=== PATIENT | female | born 1955 ===

== ENCOUNTER 2020-03-14 21:00 | Inpatient (IN) | payer OTHER ==
--- NOTE | ~2020-03-14 | DS ---
PATIENT:NAYELI HERRERA :55 MEDICAL RECORD: [id number] DISCHARGE SUMMARY ADMISSION DATE: 03/14/20 DISCHARGE DATE: 03/31/20 IDENTIFYING DATA: The patient is 65 years old and she was admitted to the hospital on a voluntary basis. CHIEF COMPLAINT: Insomnia. HISTORY OF PRESENT ILLNESS: The patient is delusional. She believes her has given her lice and there is no evidence of this. She does not have lice. She has been so concerned about it that she has sprayed her body with insecticide and caused a significant burn. She is telling me that she is going to divorce her . She is very angry and delusional. She has a history of mental illness and has not been taking her medications. Furthermore, she has a history of being on the state 911 program. The 911 program is reserved for those who has been accused of or convicted of a very serious crime but found not guilty by reason of insanity. It involves a stay in the forensic wing of the [facility] and sometimes are released to the community with intensive monitoring. The commitment is at least a 5 year commitment and it can be renewed indefinitely depending on the patient's condition. She will not tell me why she was on 911 monitoring. HOSPITAL COURSE: The patient was admitted to the hospital and fully evaluated from both a medical, psychological, and social standpoint. She was treated with both antipsychotic and mood stabilizing medications and showed significant improvement. She lost her delusion regarding the lice and also regarding her . Her prognosis is going to be dependent upon her continuing to take these medications. DISCHARGE DIAGNOSES: AXIS I: Schizoaffective disorder, bipolar type. AXIS II: None. AXIS III: Osteoarthritis. AXIS IV: Moderate stressors. AXIS V: Global assessment of functioning is 40. PLAN AT THE TIME OF DISCHARGE: The patient was in good behavioral control and had no evidence of acute or direct dangerousness to herself or others. She was tolerating her medications well. PROGNOSIS: Is going to be entirely contingent upon medication compliance and outpatient followup. TRANSINT:[id number] Voice Confirmation ID: [id number] DOCUMENT ID: [id number] CAMILA HELM MD CC: [id number] DICTATION DATE: 04/02/20 155 MEDIA/INSTRUCTIONAL DESIGNER: 04/03/20 0028 DIS IN 03/31/20 [place] [id number] [place] [address]
[2020-03-14 20:00] VITALS: BP 131/79
[2020-03-14] MEDS ORDERED: KLONOPIN1 MG PO (21:12)
--- NOTE | 2020-03-14 21:16 | NUR ---
PT ADMIT TO UNIT VIA EMS ON A STRETCHER. SHE IS ABLE TO AMBULATE WITHOUT ASSIST. SHE IS RESTLESS AND STATES "IM ANXIOUS". PT IS A FULL CODE AND HER CODE WORD 4200. SHE IS HERE BECAUSE SHE COVERED HER BODY IN RAID SHE BELIEVES HER EX GAVE HER LICE. CONSENTS SIGNED. WILL CONTINUE TO MONITOR.
--- NOTE | 2020-03-14 21:30 | NUR ---
UPON ASSESSMENT PT IS COVERED IN CHEMICAL BLEVINS FROM THE RAID SHE PLACED ALL OVER HER BODY. SHE IS STATING THAT HER PSYCHIATRIC HISTORY IS BECAUSE HER CONVINCED THE PSYCHIATRIST THAT SHE IS CRAZY AND COMMITED CRIMES. WILL CONTINUE TO MONITOR.
--- NOTE | 2020-03-14 21:49 | NUR ---
PT RESTLESS AND STATES "IM ANXIOUS". PRN 0.5 MG ATIVAN ADMINISTERED. WILL CONTINUE TO MONITOR
--- NOTE | 2020-03-14 22:10 | NUR ---
PT RESTING CALMLY IN BED WITH EYES CLOSED. NO DISTRESS NOTED. WILL CONTINUE TO MONITOR.
[2020-03-14 23:57] VITALS: BP 131/79; BMI 21.8
[2020-03-15] MEDS ORDERED: BAYER CHEWABLE81 MG PO (05:16)
[2020-03-15] MEDS ORDERED: CENTRUM SILVER1 EAC3 PO (05:17)
[2020-03-15 05:33] LABS: BASOPHILS 0.7 % (0-2); EOSINOPHILS 7.3 % (0-7); HEMATOCRIT 38.9 % (36.0-48.0); LYMPHOCYTES 32.8 % (15-50); MCH 32.2 pg (26.0-34.0); MCHC 30.8 g/dL (31.0-37.0); MCV 104.3 fL (80.0-100.0); MEAN PLATELET VOLUME 10.3 fL (7.4-10.4); NEUTROPHILS 49.2 % (40-80); PLATELET COUNT 244 10x3/uL (130-400); RBC 3.73 10x6/uL (4.00-5.40); RDW 14.7 % (11.5-14.5); WBC 4.5 10x3/uL (4.8-10.8)
[2020-03-15 06:15] LABS: ALKALINE PHOSPHATASE 122 U/L (30-120); ALT (SGPT) 17 U/L (10-68); BILIRUBIN - TOTAL 0.53 mg/dL (0.2-1.3); CALC OSMOLALITY 278 mosm/kg (275-300); CALCIUM 8.3 mg/dL (8.5-10.1); CARBON DIOXIDE 29.1 mmol/L (21.0-32.0); CHLORIDE - SERUM 106 mmol/L (98-107); CHOL - HDL RATIO 1.9 ratio (2.3-4.1); CHOLESTEROL, TOTAL 162 mg/dL (0-200); CREATININE - SERUM 0.7 mg/dL (0.6-1.3); GLUCOSE 87 mg/dL (74-106); HDL CHOLESTEROL 84 mg/dL (32-96); LDL CHOLESTEROL 69 mg/dL (0-100); LDL-HDL RATIO 0.8 ratio (1.5-3.5); PROTEIN - SERUM 5.8 g/dL (6.4-8.2); SODIUM 141 mmol/L (136-145); THYROID STIMULATING HORMONE 0.69 uIU/mL (0.36-3.74); TRIGLYCERIDE 46 mg/dL (30-200); UREA NITROGEN 9 mg/dL (7-18); VALPROIC ACID (DEPAKOTE) 1.3 ug/mL (50.0-100.0); eGFR NON AFRICAN AMERICAN 89 mL/min (90-120)
[2020-03-15 08:07] VITALS: BP 136/81
--- NOTE | 2020-03-15 09:25 | NUR ---
The patient is awake and she is speaking with Dr. Gomez, she is explaining to him about her arms itching and how she needs some cream and she asked for a xanax. Explained to her she has ativan ordered and she said "Oh, yea, that's what I mean." Ativan 0.5 mg po given, will monitor. She explains that her accuses her of being psychotic, but then she told Dr. gomez he does not live with her. She is blunted in affect and bizarre in her thought process. Provide prescribed meds. Continue POC.
[2020-03-15 10:13] VITALS: BP 136/81
--- NOTE | 2020-03-15 10:25 | NUR ---
The patient is less anxious and she is interacting with other patients.
[2020-03-15 10:51] VITALS: Wt 52.7 kg
[2020-03-15 15:04] LABS: BILIRUBIN NEGATIVE (NEGATIVE); GLUCOSE NEGATIVE (NEGATIVE); KETONE NEGATIVE (NEGATIVE); NITRITE NEGATIVE (NEGATIVE); UROBILINOGEN NORMAL (NORMAL)
[2020-03-16 05:17] VITALS: BP 172/92
--- NOTE | 2020-03-16 08:06 | NUR ---
The patient asked for an ativan she says she is nervous. Ativan 0.5 mg po provided.
[2020-03-16 08:24] VITALS: BP 142/95
--- NOTE | 2020-03-16 09:00 | NUR ---
The patient sat in a chair in the day room and she went to sleep, denies anxiety at this time.
--- NOTE | 2020-03-16 09:45 | NUR ---
The patient is c/o nausea. Provided zofran 4 mg po.
--- NOTE | 2020-03-16 10:30 | NUR ---
The patient is laying on the couch now and trying to sleep.
--- NOTE | 2020-03-16 12:47 | NUR ---
The patient awakened for lunch, but then lay on the couch. She is not saying anything to anyone, mostly isolating and trying to sleep. She has mentioned having lice, but in a past tense. She ambulates independently. Provide prescribed meds. The patient is compliant with meds. Continue POC.
--- NOTE | 2020-03-16 17:22 | NUR ---
The patient got up from the dinner table and she vomitted a scant amount, she is also saying that she has lice under skin and her is dousing her with things. She said next time I'll just use Off to get the bugs off. Explained to her that she should not use anything, she should call her Dr. She asked me to look at her neck. She said "I have lice, there's bumps there." She does not have bumps, she does have reddened and scaly skin. Zofran 4 mg po given for her nausea. Will monitor.
[2020-03-16 18:55] VITALS: BP 164/82
--- NOTE | 2020-03-16 19:09 | NUR ---
RECEIVED IN BEDROOM. RESTING IN BED WITH EYES CLOSED. RESPONDS TO VOICE. CALM AND COOPERATIVE WITH CARE AND ASSESSMENT. ENCOURAGE TO EXPRESS NEEDS. REDIRECT AND REORIENT NEEDED. CONTINUES TO REST QUIETLY IN BEDROOM. CONTINUE PLAN OF CARE.
[2020-03-17 08:29] VITALS: BP 141/86
--- NOTE | 2020-03-17 12:00 | NUR ---
RECEIVED IN HALLWAY OUTSIDE OF NURSES STATION. CALM AND COOPERATIVE WITH CARE AND ASSESSMENT. DELUSIONALLY THINKING SHE HAS BUGS ON HER SKIN, BED, AND IN FLOOR OF HER ROOM. REDIRECT AND REORIENT NEEDED. EATING AT THIS TIME. CONTINUE PLAN OF CARE.
[2020-03-17 19:17] VITALS: BP 174/92
--- NOTE | 2020-03-17 19:24 | NUR ---
RECEIVED IN DAYROOM. SITTING IN A CHAIR WITH PEERS AT HER SIDE. CALM AND COOPERATIVE WITH CARE AND ASSESSMENT. REDIRECT AND REORIENT NEEDED. CONTINUES TO SIT CALMLY IN DAYROOM. CONTINUE PLAN OF CARE.
[2020-03-18 07:11] LABS: RAPID PLASMA REAGIN Non Reactive (Non Reactive)
[2020-03-18 07:59] VITALS: BP 153/95
--- NOTE | 2020-03-18 10:28 | PN ---
PATIENT:NAYELI HERRERA MEDICAL RECORD: [id number] LOCATION:[facility] ADMISSION DATE: 03/14/20 PROGRESS NOTE DATE OF SERVICE: 03/17/2020 SUBJECTIVE: The patient's case was discussed with staff. She has no new complaint. OBJECTIVE: The patient continues to insist that she has lice covering her. She is angry with her and feels that he has given her this infection deliberately. She tells me she has not been taking her medications at home and that she has not been seeing her outpatient psychiatrist. ASSESSMENT: Schizoaffective disorder. PLAN: The patient is delusional, paranoid, and is dangerous. She is extremely angry with her whom she believes has deliberately infected her with body lice. She has a first degree burn over much of her body, where she has been spraining the insect killer Raid on herself to kill these imaginary bugs. At this point, she is going to be started on a mood stabilizing agent and will be monitored for clinical changes associated with it and the addition of an antidepressant. She is also going to have her antipsychotic medication change since it does not appear to have been effective over the past two days. TRANSINT:[id number] Voice Confirmation ID: [id number] DOCUMENT ID: [id number] CAMILA HELM MD at 1028 CC: [id number] DICTATION DATE: 03/17/20 1537 BUTTONHOLE MAKER: 03/17/20 2332 ADM IN [facility] [address] [place] [address]
--- NOTE | 2020-03-18 11:18 | NUR ---
RECEIVED IN HALLWAY OUTSIDE OF NURSES STATION. CALM AND COOPERATIVE WITH CARE AND ASSESSMENT. STATED SHE NEEDS A DIFFERENT SPRAY OTHER THAN RAID TO SPRAY ON HERSELF FOR LICE. ALSO STATED SHE DOESN'T NEEDED ANY PSYCHIATRIC MEDICATIONS BECAUSE THERE IS NOTHING WRONG WITH HER. REDIRECT AND REORIENT NEEDED. LAYING ON COUCH AT THIS TIME. CONTINUE PLAN OF CARE.
--- NOTE | 2020-03-18 13:43 | NUR ---
Nutrition Follow-up: Good PO intake yesterday (90-100%). Diet: Regular PO intake: 77% avg x 6 meals Wt: 122.6# (03/16); 123# (03/14) Last BM: 03/13 Labs reviewed Meds noted: Protonix, Senokot -Encourage PO intake and honor food preferences. -Monitor wt. -RD following.
--- NOTE | 2020-03-18 20:01 | NUR ---
RECEIVED IN DAYROOM. RESTING IN A CHAIR WITH PEERS AT HER SIDE. CALM AND COOPERATIVE WITH CARE AND ASSESSMENT. CONFUSED. REDIRECT AND REORIENT NEEDED. CONTINUE PLAN OF CARE.
[2020-03-18 21:00] VITALS: BP 142/67
[2020-03-19 09:04] VITALS: BP 109/79
--- NOTE | 2020-03-19 09:39 | PN ---
PATIENT:NAYELI HERRERA MEDICAL RECORD: [id number] LOCATION:[facility] ADMISSION DATE: 03/14/20 PROGRESS NOTE DATE OF SERVICE: 03/18/2020 SUBJECTIVE: The patient's case was discussed with staff. She has no new complaint. OBJECTIVE: The patient is angry with me. She says that she does not need any psychoactive medications and that there is nothing wrong with her mentally. She only needs me to give her something different to spray on her body. As documented before, she has been spraining Raid on her skin to get rid of the lice. She says that her has given her the lice deliberately that he has put it in her food, he has also put it in her medications. She says that her has raped babies and murdered his family. She is clearly very delusional and distressed. She tells me that if it is necessary for her to say she does not have lice and take medicine, so that she can get out of her quickly then she will do that so that she can get the proper medical help. ASSESSMENT: Schizoaffective disorder. PLAN: The patient will be maintained on current medications. They have not had an opportunity to become effective. She is currently receiving Depakote at a dose of 500 mg twice daily. It will be at least 24-48 hours before I can feel comfortable that the blood level drawn is accurate. I will be increasing the dose of her antidepressant, but not today based upon her level of paranoia about the medications. Also, she is on a very substantial dose of Zyprexa 10 mg at bedtime. It may be necessary to increase that, but again these medicines have not had an opportunity to have clinical effect and she has intermittently refused a couple of them compounding the problem. At this point, I think the most appropriate course of action is to keep her hospitalized, to not aggressively move the doses up in a patient who is already paranoid about the medicine, but to encourage medication compliance with the idea that as she takes the medicine and starts to gain a little bit of insight, then she will take it more consistently and I can also adjust the doses more appropriately. At this point, some sort of a confrontation over compliance would likely just simply result in her refusing to take any medications. TRANSINT:[id number] Voice Confirmation ID: [id number] DOCUMENT ID: [id number] CAMILA HELM MD at 0939 CC: [id number] DICTATION DATE: 03/18/20 1314 HIGH SCHOOL GUIDANCE COUNSELOR: 03/18/20 1845 ADM IN [place] [id number] [place] [id number]
--- NOTE | 2020-03-19 12:00 | NUR ---
RECEIVED IN HALLWAY OUTSIDE OF NURSES STATION. CALM AND COOPERATIVE WITH CARE AND ASSESSMENT. NO STATEMENTS MADE ABOUT LICE OR BUGS. COMPLIANT WITH MEDICATIONS TODAY. REDIRECT AND REORIENT NEEDED. EATING LUNCH AT THIS TIME. CONTINUE PLAN OF CARE.
[2020-03-19 20:38] VITALS: BP 133/75
--- NOTE | 2020-03-19 21:31 | NUR ---
B.) PT IS ALERT AND ORIENTED TO SELF, TIME AND PLACE. SHE HAS POOR INSIGHT INTO HER SITUATION. SHE IS CALM AND COOPERATIVE WITH STAFF. SHE IS A LITTLE WITHDRAWN TONITE BUT PLEASANT WITH STAFF. SHE IS HAVING HALLUCINATIONS OF "LICE" ALL OVER HER SHEETS AND REQUEST NEW SHEET AND A SHOWER. I.) PROVIDED PM MEDICATIONS PRESCRIBED. REDIRECT NEEDED. ASSISTED WITH SHOWER. R.) COMPLIANT WITH ALL MEDICATIONS. EASY TO REDIRECT. P.) WILL CONTINUE TO MONITOR.
[2020-03-20 08:56] VITALS: BP 103/73
--- NOTE | 2020-03-20 10:51 | NUR ---
PT IS LAYING ON THE COUCH WITH HER EYES CLOSED. PT IS FRIENDLY WHEN SPOKEN TO, NO DISTRESS NOTED. PT IS ALERT TO PERSON, PLACE AND TIME. PT HAS POOR INSIGHT TO SITUATION. PT IS CALM AND COOPERATIVE WITH STAFF. HAVE NOT NOTED PT HALLUCINATIONS OF LICE AND HER EX-. PT DID STOP NURSE THIS AM ASKING FOR MORE LAXATIVES. WHEN A.M. MEDICATION WAS ADMINISTERED PT STATED ARE THERE LAXATIVES IN THERE? YOU KNOW WHAT WORKS 2 CAPS OF MIRALAX." NURSE NOTED THERE WAS 2 SENNAS IN THE MEDICAITON. ANYTHING MORE SHE WOULD HAVE TO SPEAK WITH THE DOCTOR ABOUT. COMPLIANT WITH MEDS, VITALS AND ASSESSMENT. REDIRECT NEEDED. PT AMBULATES WITH WALKER. ASSIST WITH ADLS. WILL CONT PLAN OF CARE.
--- NOTE | 2020-03-20 13:01 | PN ---
PATIENT:NAYELI HERRERA MEDICAL RECORD: [id number] LOCATION:[facility] ADMISSION DATE: 03/14/20 PROGRESS NOTE DATE OF SERVICE: 03/19/2020 SUBJECTIVE: The patient's case was discussed with staff. She has no new complaint. OBJECTIVE: The patient is in good behavioral control, but continues to hang to the delusion that she is infected with lice. Apparently, she is telling some of the staff members she does not have lice and others that she does. I think this is related to her having it insight into the fact that if she says that she does not have it she can go home. ASSESSMENT: Schizoaffective disorder. PLAN: The patient is taking the appropriate medications to treat her condition. I do have additional information that has to this point been unavailable. She was adjudicated not guilty by reason of insanity in 2007 and sent to the [facility]. She will not tell me what that charge was. She subsequently was on the monitoring 911 program, which is used for patients who are released from the [facility] hospital, but are still under monitoring by the court. That is a 5 year program and apparently she was released from it. The is saying that every time she is released from any kind of court order, whether it is from the state's program for those found not guilty by reason of insanity or just a simple court order for treatment from one of the local judges she stops taking her medications. She has been hospitalized numerous times and has consistently had the same diagnosis. She does well when she takes her medication, but compliance is an ongoing issue. She also has been abusing alcohol, but she is not showing any evidence of alcohol withdrawal, so I am not particularly concerned about that being an issue for this hospitalization. I am also going to not make an absence of the delusion about insects criteria for discharge. I am going to require that she be on a long-acting injectable antipsychotic, which I am going to start today and I am going to require that there be some mechanism in place that will require her to go to outpatient appointments at least on a monthly basis and receive this injection. Her has been given a full guardianship by the court, which is helpful, but it still cannot force her to go to monthly appointments for a Haldol injection. I am virtually certain that she is not going to take medications on a consistent basis and given the longitudinal history that was heretofore unavailable that backs up that conclusion. The [facility] would be the appropriate place for her to have followup and we will work closely with them to ensure that she is compliant with treatment once released. TRANSINT:[id number] Voice Confirmation ID: [id number] DOCUMENT ID: [id number] PROGRESS NOTE [id number] NAYELI HERRERA PETER MD at 1301 CC: [id number] DICTATION DATE: 03/19/20 170 PRUNE WASHER: 03/20/20 0052 ADM IN [facility] [address] [place] [id number]
--- NOTE | 2020-03-20 14:46 | NUR ---
Nutrition Follow-up: Overall fair PO intake. Noted pt c/o constipation and Dulcolax added. Diet: Regular PO intake: 72% avg x 9 meals Wt: 122.6# (03/16); 123# (03/14) -BM No new labs Meds noted: Protonix, Senokot, Dulcolax -Encourage PO intake and honor food preferences. -Offer nutrition supplements. -Monitor wt. -RD following.
[2020-03-20 19:32] VITALS: BP 151/80
--- NOTE | 2020-03-20 21:08 | NUR ---
B.) PT IS ALERT AND ORIENTED TO SELF AND SITUATION. SHE IS RECEIVED IN HER ROOM. SHE C/O OF NAUSEA. SHE IS ABLE TO AMBULATE WITHOUT ASSIST. SHE IS CALM AND COOPERATIVE WITH STAFF. SHE DENIES EVER SEEING LICE. STATES "I FELT LIKE THEY WERE ON ME BUT NEVER SAW THEM." I.) PROVIDED PM MEDICATIONS PRESCRIBED AND PRN ZOFRAN PER ORDERS. REDIRECT NEEDED. R.) COMPLIANT WITH ALL MEDICATIONS. STATES IMPROVEMENT IN NAUSEA. EASY TO REDIRECT. P.) WILL CONTINUE TO MONITOR.
[2020-03-21 08:41] VITALS: BP 109/79
--- NOTE | 2020-03-21 09:33 | NUR ---
The patient is awake and alert, she is calm, she has not mentioned bugs in her skin today, but she has asked for something for congestion this am. She is sitting up in the day room. Ashley SESAY is conducting a group and she had to get this patient to sit up as she wants to just lay down. Provide prescribed meds. The patient is compliant with meds. Continue POC.
[2020-03-21 19:49] VITALS: BP 151/90
--- NOTE | 2020-03-21 20:36 | NUR ---
PATIENT IS CONFUSES, PLEASANT, COMPLIANT WITH MEDS, CAN MAKE NEEDS KNOWN. HAVE NOT WITNESSED AT THIS TIME ANY HALLUCINATIONS. WALKS WITH A WALKER. WILL FOLLOW POC
[2020-03-22 07:45] VITALS: BP 101/68
--- NOTE | 2020-03-22 11:44 | NUR ---
The patient is awake and she is trying to use a walker. She ambulates independently. Explained to her that she does not need a walker. She is telling staff that she needs some nose spray because she had her adenoids taken out. She then told Sangita Manzanares APN that she had hemorroids and needed something for that, she has asked for several medications today. She keeps saying she is sick and wants to just lay in the bed or on the couch. She has not made any statements about bugs living in her skin today, but she sits and stares. Provide prescribed meds. The patient is compliant with meds. Continue POC.
[2020-03-22 19:32] VITALS: BP 102/67
--- NOTE | 2020-03-23 00:17 | NUR ---
B)RECEIVED PATIENT SITTING ON THE COUCH. SOCIALLY WITHDRAWN. PLEASANT AND COOPERATIVE WITH STAFF. CONFUSED AND DISORIENTED. REPORTED TO NURSE "BASICALLY ALRIGHT BUT MY PUT LICE ON ME. HE'S NOT RIGHT. SUPPOSE TO BE GETTING A DIVORCE." SHOWED HER LEGS TO THE NURSE AND HAD SOME BUMPS ON HER LEGS. I)ADMINISTER MEDS AND MONITOR COMPLIANCE. REORIENT NEEDED. R)MED COMPLIANT. POOR REORIENTATION DUE TO IMPAIRED ABILITY TO RETAIN INFORMATION. P)CONTINUE POC AND PROVIDE SAFE ENVIRONMENT.
[2020-03-23 08:31] VITALS: BP 107/68
--- NOTE | 2020-03-23 12:00 | NUR ---
RECEIVED IN HALLWAY OUTSIDE OF NURSES STATION. CALM AND COOPERATIVE WITH CARE AND ASSESSMENT. NO BEHAVIORS. REDIRECT AND REORIENT NEEDEED. EATING LUNCH AT THIS TIME. CONTINUE PLAN OF CARE.
--- NOTE | 2020-03-23 16:26 | PN ---
PATIENT:NAYELI HERRERA MEDICAL RECORD: [id number] LOCATION:[facility] ADMISSION DATE: 03/14/20 PROGRESS NOTE DATE OF SERVICE: 03/20/2020 SUBJECTIVE: The patient's case was discussed with staff. She has no new complaint. OBJECTIVE: The patient denies intent to harm herself or others. She still is very delusional, particularly about the presence of the body lice. ASSESSMENT: Schizoaffective disorder. PLAN: I still do not have information about the crime that she committed to be placed on the 911 program. I know it had to be serious. I know this is not a civil commitment. This is a commitment for those who are found guilty of a felony and found not guilty by reason of insanity. It is 5-year commitment. This patient has a history of something very serious and she will not tell me what it is. She did receive the Haldol Decanoate , it is at a dose of 50 mg. I am going to consider giving her another injection prior to discharge. TRANSINT:[id number] Voice Confirmation ID: [id number] DOCUMENT ID: [id number] CAMILA HELM MD at 1626 CC: [id number] DICTATION DATE: 03/20/20 175 ADMINISTRATIVE ASSISTANT: 03/20/20 2339 ADM IN [place] [id number] [place] [address]
--- NOTE | 2020-03-23 19:24 | NUR ---
RECEIVED IN DAYROOM. RESTING QUIETLY ON THE SOFA. CALM AND COOPERATIVE WITH CARE AND ASSESSMENT. NO DELUSIONAL STATEMENTS MADE THIS EVENING. ENCOURAGE TO EXPRESS NEEDS. CONTINUES TO REST QUIETLY IN DAYROOM. CONTINUE PLAN OF CARE.
[2020-03-23 19:28] VITALS: BP 148/94
[2020-03-24 08:43] VITALS: BP 100/56
--- NOTE | 2020-03-24 12:00 | NUR ---
RECEIVED IN HALLWAY OUTSIDE OF NURSES STATION. CALM AND COOPERATIVE WITH CARE AND ASSESSMENT. NO DELUSIONAL STATEMENTS MADE. REDIRECT AND REORIENT NEEDED. EATING LUNCH AT THIS TIME. CONTINUE PLAN OF CARE.
[2020-03-24 19:22] VITALS: BP 136/87
--- NOTE | 2020-03-24 19:47 | NUR ---
RECEIVED IN DAYROOM. SITTING ON THE SOFA. KEEPING TO HERSELF. CALM AND COOPERATIVE WITH CARE AND ASSESSMENT. ENCOURAGE TO EXPRESS NEEDS. REDIRECT AND REORIENT NEEDED. CONTINUES TO SIT QUIETLY IN DAYROOM. CONTINUE PLAN OF CARE.
[2020-03-25 07:47] VITALS: BP 118/84
--- NOTE | 2020-03-25 08:30 | NUR ---
RECEIVED IN HALLWAY OUTSIDE OF NURSES STATION. CALM AND COOPERATIVE WITH CARE AND ASSESSMENT. NO BEHAVIORS. REDIRECT AND REORIENT NEEDED. EATING BREAKFAST AT THIS TIME. CONTINUE PLAN OF CARE.
--- NOTE | 2020-03-25 11:32 | PN ---
PATIENT:NAYELI HERRERA MEDICAL RECORD: [id number] LOCATION:[facility] ADMISSION DATE: 03/14/20 PROGRESS NOTE DATE OF SERVICE: 03/24/2020 SUBJECTIVE: The patient's case was discussed with staff. She has no new complaint. OBJECTIVE: The patient is much more cooperative. She says that she no longer has an infection with bugs, but insists that it was her who was poisoning her. ASSESSMENT: Schizoaffective disorder. PLAN: The patient had a therapeutic Depakote level from a few days ago. She has received Haldol decanoate injection. She is not going to go home with her given the fact that she thinks he is trying to kill her, so I will discuss placement options with the treatment team. TRANSINT:[id number] Voice Confirmation ID: [id number] DOCUMENT ID: [id number] CAMILA HELM MD at 1132 CC: [id number] DICTATION DATE: 03/24/20 1524 JUNIOR BUYER: 03/24/202000 ADM IN [facility] [address] [place] [address]
[2020-03-25 19:43] VITALS: BP 132/95
--- NOTE | 2020-03-25 19:52 | NUR ---
RECEIVED IN DAYROOM. SITTING ON THE SOFA BY HERSELF. CALM AND COOPERATIVE WITH CARE NAD ASSESSMENT. NO DELUSIONAL STATEMENTS MADE THIS EVENING. CALM AND COOPERATIVE WITH CARE AND ASSESSMENT. REDIRECT AND REORIENT NEEDED. CONTINUES TO SIT QUIETLY IN DAYROOM. CONTINUE PLAN OF CARE.
[2020-03-26 08:15] VITALS: BP 119/81
--- NOTE | 2020-03-26 09:41 | NUR ---
SW CALLED THE PT'S TO DISCUSS DISCHARGE PLANNING NEEDS. ANTHONY WILL SET UP PT WITH [facility] AND ASSIGNED PT DR BRUNNER PCP DUE TO PT NOT HAVING ONE. PT'S VOICED UNDERSTANDING OF DISCUSSION.
--- NOTE | 2020-03-26 10:17 | PN ---
PATIENT:NAYELI HERRERA MEDICAL RECORD: [id number] LOCATION:[facility] ADMISSION DATE: 03/14/20 PROGRESS NOTE DATE OF SERVICE: 03/25/2020 SUBJECTIVE: The patient's case was discussed with staff. She has no new complaint. OBJECTIVE: The patient is in good behavioral control. She is denying any intent to harm herself or others. She is tolerating her medicines well. ASSESSMENT: Schizoaffective disorder. PLAN: The patient has a therapeutic Depakote level. She is calm. She is still delusional, but she is in need of supervision. I anticipate she can be transitioned out of the hospital as soon as requirements for supervision are arranged. TRANSINT:[id number] Voice Confirmation ID: [id number] DOCUMENT ID: [id number] CAMILA HELM MD at 1017 CC: [id number] DICTATION DATE: 03/25/20 1230 DIRECTOR SHIP: 03/25/[address] [facility] [address] [place] [id number]
--- NOTE | 2020-03-26 11:11 | NUR ---
The patient is somatic, she is complaining of not being able to eat solid food and she vomited a small amount of food on her tray she says she has so much phlegm that she can't eat her solid food only yogurt and ensure. Tried to explain to her that with all that phlegm she shouldn't eat or drink dairy products. She said "I need an antibiotic for all of this phlegm." She asked for her nose spray and she requests a different med every day. She asked for this nurse to crush her meds and explained to her that she was able to take her pills whole. She took her meds whole. Continue POC.
[2020-03-26 20:30] VITALS: BP 118/77
--- NOTE | 2020-03-26 21:25 | NUR ---
PATIENT IS VERY "NEEDY", POOR INSIGHT, PATIENT IS VERY SOMATIC, EASILY REDIRECTED. WILL FOLLOW POC
[2020-03-27 08:16] VITALS: BP 115/80
--- NOTE | 2020-03-27 08:27 | PN ---
PATIENT:NAYELI HERRERA MEDICAL RECORD: [id number] LOCATION:[facility] ADMISSION DATE: 03/14/20 PROGRESS NOTE DATE OF SERVICE: 03/26/2020 SUBJECTIVE: The patient's case was discussed with staff. She has no new complaint. OBJECTIVE: The patient is in good behavioral control with limited insight about her condition. She is tolerating her medications well. ASSESSMENT: Schizoaffective disorder. PLAN: The patient will be maintained on current medications, which have been reviewed. She is wanting to live independently. It is appearing as though that may be our only option. I am reluctant to do this. I think she needs more supervision and I do not think she will take her medications if she is not in an environment where someone is offering them or giving them to her, but not all options have been exhausted and if they are she will be discharged to her own home and then a welfare check will be requested with adult protective services. TRANSINT:[id number] Voice Confirmation ID: [id number] DOCUMENT ID: [id number] CAMILA HELM MD at 0827 CC: [id number] DICTATION DATE: 03/26/20 1459 POLICE JUDGE: 03/26/20 1710 ADM IN [place] [id number] [place] [address]
[2020-03-27 08:59] VITALS: BP 115/80
--- NOTE | 2020-03-27 11:04 | NUR ---
The patient continues to be somatic, she says she is sick, although, she did eat a little better today. She tells staff and peers she is sick and "Everyone knows I am sick and need an antibiotic." She then said "I think I get to leave soon." The patient is not mentioning anymore bugs in her, but she is adamant that her is trying to get everyone to believe she is "Crazy." Provide prescribed meds. The patient is compliant with meds. Provided applesauce for her today so that she can take them eaiser. Continue POC.
[2020-03-27 16:12] LABS: BASOPHILS 0.5 % (0-2); EOSINOPHILS 1.3 % (0-7); HEMATOCRIT 43.9 % (36.0-48.0); HEMOGLOBIN 13.7 g/dL (12-16); IMMATURE GRANULOCYTES 0.6 % (0-5); LYMPHOCYTES 19.7 % (15-50); MCH 32.6 pg (26.0-34.0); MCHC 31.2 g/dL (31.0-37.0); MCV 104.5 fL (80.0-100.0); MEAN PLATELET VOLUME 10.3 fL (7.4-10.4); MONOCYTES 6.8 % (2-11); NEUTROPHILS 71.1 % (40-80); PLATELET COUNT 255 10x3/uL (130-400); RDW 13.8 % (11.5-14.5); WBC 8.4 10x3/uL (4.8-10.8)
[2020-03-27 16:25] LABS: ANION GAP 10.9 mmol/L (8-16); CALCIUM 8.6 mg/dL (8.5-10.1); CARBON DIOXIDE 31.2 mmol/L (21.0-32.0); CREATININE - SERUM 1.1 mg/dL (0.6-1.3); POTASSIUM - SERUM 4.1 mmol/L (3.5-5.1); VALPROIC ACID (DEPAKOTE) 77.7 ug/mL (50.0-100.0)
[2020-03-27 20:25] VITALS: BP 123/83
--- NOTE | 2020-03-27 22:37 | NUR ---
B)RECEIVED PATIENT SITTING ON THE COUCH. ALERT AND ORIENTED X3. RELATED THE REASON FOR HOSPITALIZATION "NEED TO TAKE SOME MEDICINE LIKE DEPAKOTE AND ZYPREXA. LIED ON ME BUT HE WILL HAVE TO PAY FOR IT ONE DAY." RELATES SAID HE IS GOING TO GET A DIVORCE AND PATIENT REALTES WHEN HE SAYS HE IS GOING TO DO SOMETHING THEN HE DOES IT. I)ADMINISTER MEDS AND MONITOR COMPLIANCE. ENCOURAGE PATIENT TO INTERACT WITH PEERS. R)MED COMPLIANT. INTERACTS WITH STAFF WHEN APPROACHED AND IS APPROPRIATE HOWEVER REMAINS WITHDRAWN AND DOES NOT INITIATE INTERACTION WITH OTHERS. P)CONTINUE POC AND PROVIDE SAFE ENVIRONMENT.
[2020-03-28 09:39] VITALS: BP 109/85
--- NOTE | 2020-03-28 13:40 | NUR ---
Nutrition Follow-up: Overall fair PO intake. Pt ate 30-100% of meals yesterday. Noted pt without BM x 7 days. Diet: Regular PO intake: 57% x 9 meals WT: 120.4# (03/23); 122.6# (03/16) Labs reviewed Meds noted: Linzess, Senokot, Dulcolax, Protonix -Encourage PO intake and honor food preferences. -+Ensure with meals -Monitor wt. -RD following.
[2020-03-28 20:23] VITALS: BP 132/91
--- NOTE | 2020-03-28 21:37 | NUR ---
B.) PT IS ALERT AND ORIENTED TO SELF, PLACE AND TIME. SHE IS ABLE TO MAKE HER NEEDS KNOWN. SHE IS DEMANDING AND INTRUSIVE WITH STAFF. SHE IS ABLE TO AMBULATE ON HER OWN WITHOUT ASSIST. I.) PROVIDED PM MEDICATIONS. REDIRECT OFTEN. R.) COMPLIANT WITH ALL MEDICATIONS. EASY TO REDIRECT. P.) WILL CONTINUE TO MONITOR.
[2020-03-29 08:17] VITALS: BP 103/81
--- NOTE | 2020-03-29 13:12 | NUR ---
The patient is awake and alert, she is more pleasant this am and not as negative, but continues to c/o her stomach hurting, in spite of her recieving new medication. She has not mentioned any bugs under her skin. Provide prescribed meds. The patient is compliant with meds. She has told staff she is leaving at 10 am tomorrow. She asked Belkys Mayorga RN where she needs to tell the person picking her up tomorrow to go to pick her up. Staff said the person will be notified before they come. She said "Ok." Continue POC.
[2020-03-29 20:11] VITALS: BP 129/85
--- NOTE | 2020-03-29 21:11 | NUR ---
B.) PT IS ALERT AND ORIENTED TO SELF, PLACE AND SITUATION. SHE IS CALM AND COOPERATIVE WITH STAFF. SHE IS ABLE TO VOICE NEEDS AND WANTS. SHE IS REQUESTING THAT HER MEDICATIONS BE CRUSHED STATING "I HAVE A HARD TIME SWALLOWING THEM" I.) PROVIDED PM MEDICATIONS PRESCRIBED. ADDRESS PTS NEEDS AND WANTS. R.) COMPLIANT WITH ALL MEDICATIONS. P.) WILL CONTINUE TO MONITOR.
[2020-03-30 07:41] VITALS: BP 129/84
--- NOTE | 2020-03-30 12:43 | NUR ---
The patient is awake and alert, she is pleasant and calm. She ambulates independently. She wants to sleep on the couch most of the time. She remains somatic, but she is less so today. Provide prescribed meds. The patient is compliant with meds. Continue POC.
--- NOTE | 2020-03-30 19:28 | NUR ---
RECEIVED IN DAYROOM. SITTING IN A CHAIR WITH PEERS BY HER SIDE. CALM AND COOPERATIVE WITH CARE AND ASSESSMENT. NO DELUSIONAL STATEMENTS MADE THIS EVENING. REDIRECT AND REORIENT NEEDED. CONTINUES TO SIT QUIETLY IN DAYROOM. CONTINUE PLAN OF CARE.
[2020-03-30 20:00] VITALS: BP 161/92
[2020-03-31 08:05] VITALS: BP 124/96
[2020-03-31] MEDS ORDERED: FEXOFENADINE HC60 MG PO (11:02)
[2020-03-31] MEDS ORDERED: DEPAKOTE500 MG PO (11:02)
[2020-03-31] MEDS ORDERED: HALDOL DECAN50 MG/ML IM (11:02)
[2020-03-31] MEDS ORDERED: LINZESS145 MCG PO (11:03)
[2020-03-31] MEDS ORDERED: FLUTICASONE PRO16 GM NASAL (11:03)
[2020-03-31] MEDS ORDERED: Senokot TAB PO (11:04)
[2020-03-31] MEDS ORDERED: PROTONIX40 MG PO (11:04)
--- NOTE | 2020-03-31 13:22 | PN ---
PATIENT:NAYELI HERRERA MEDICAL RECORD: [id number] LOCATION:[facility] ADMISSION DATE: 03/14/20 PROGRESS NOTE DATE OF SERVICE: 03/27/2020 SUBJECTIVE: The patient's case was discussed with staff. She has no new complaint. OBJECTIVE: The patient denies intent to harm herself or others. She denies that she has any infection with parasites. ASSESSMENT: Schizoaffective disorder. PLAN: The patient had an injection of Haldol decanoate. I am going to start tapering her down on the Zyprexa and would prefer to discharge her on a single antipsychotic medication. She will be monitored for clinical changes. TRANSINT:[id number] Voice Confirmation ID: [id number] DOCUMENT ID: [id number] CAMILA HELM MD at 1322 CC: [id number] DICTATION DATE: 03/27/20 1551 DIE REPAIRER FORGING: 03/27/20 1801 ADM IN [id number] [place] [address]
== END 2020-03-31 15:01 | disposition home or self-care (01) | DRG 885 ==
LOC: D.PSYCH 21:00
PROVIDERS: ADMIT Psychiatry & Neurology Psychiatry; ATTEND Psychiatry & Neurology Psychiatry
DX: F25.9 Schizoaffective disorder, unspecified (principal); F03.91 Unspecified dementia, unspecified severity, with behavioral disturbance; F41.9 Anxiety disorder, unspecified; T60.8X1A Toxic effect of other pesticides, accidental (unintentional), initial encounter; T30.4 Corrosion of unspecified body region, unspecified degree; K21.9 Gastro-esophageal reflux disease without esophagitis; K59.00 Constipation, unspecified; J30.1 Allergic rhinitis due to pollen

== ENCOUNTER 2020-05-23 11:51 | Inpatient (IN) | payer OTHER ==
[~2020-05-23 11:51] MED LIST: BAYER CHEWABLE81 MG PO; CENTRUM SILVER1 EAC3 PO; DEPAKOTE500 MG PO; FEXOFENADINE HC60 MG PO; FLUTICASONE PRO16 GM NASAL; HALDOL DECAN50 MG/ML IM; KLONOPIN1 MG PO; LINZESS145 MCG PO; PROTONIX40 MG PO; Senokot TAB PO
[2020-05-23 12:03] VITALS: BP 138/97; BMI 19.8
--- NOTE | 2020-05-23 13:05 | NUR ---
The patient is admitted to intermediate from [facility], apparently the patient has been hallucinating and she is delusional, she believes her is trying to poison her. She has dry flaking skin on her legs and feet. She says she is a full code. Spoke to the patient's spouse Romulo Green he is her guardian and he gave permission for her to be here. The patient is calm and she says she feels better now that she is here.
[2020-05-23 16:02] LABS: CHOL - HDL RATIO 2.2 ratio (2.3-4.1); LDL-HDL RATIO 0.9 ratio (1.5-3.5); THYROID STIMULATING HORMONE 3.33 uIU/mL (0.36-3.74)
[2020-05-23 20:00] VITALS: BP 169/90
--- NOTE | 2020-05-24 01:10 | NUR ---
TECH FOUND A SET OF KEYS IN PTS ROOM. I INVENTORIED IT AND PLACED IN THE LOCK BOX ON THE UNIT.
--- NOTE | 2020-05-24 03:52 | NUR ---
B) Patient is alert and oriented to person and place, complained of itching to legs, no behaviors noted I) Administered scheduled medications as ordered, monitored for safety R) Mediation compliant, pleasant toward staff, P) Continue plan of care.
[2020-05-24 08:24] VITALS: BP 136/94
--- NOTE | 2020-05-24 16:00 | NUR ---
B) PATIENT IS ALERT AND ORIENTED TO PERSON, TIME, AND PLACE. NO BEHAVIORS NOTED. CALM AND COOPERATIVE WITH CARE AND ASSESSMENT. I) ADMINISTERED PRESCRIBED MEDICATIONS. MONITOR FOR SAFETY. R) COMPLIANT WITH MEDICATIONS. REDIRECT NEEDED. P) CONTINUE PLAN OF CARE.
--- NOTE | 2020-05-24 16:22 | NUR ---
ATIVAN 0.5 MG PO GIVEN FOR FEELING ANXIOUS PER PATIENT REQUEST.
[2020-05-24 20:02] VITALS: BP 132/73
--- NOTE | 2020-05-24 21:58 | NUR ---
B.) PT IS A&O TO SELF, PLACE AND TIME. SHE IS ABLE TO AMBULATE WITHOUT ASSIST. SHE IS SELF ISOLATING THIS EVENING. SHE HAS A BLUNTED AFFECT. SHE IS ABLE TO AMBULATE WITHOUT ASSIST. I.) PROVIDED PM MEDICATIONS. REDIRECT NEEDED. R.) COMPLIANT WITH ALL MEDICATIONS. EASY TO REDIRECT. P.) WILL CONTINUE TO MONITOR.
[2020-05-25 13:48] VITALS: BP 126/86
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
[2020-05-25 20:24] VITALS: BP 159/89
--- NOTE | 2020-05-25 20:28 | NUR ---
RECEIVED IN DAYROOM. SITTING IN A CHAIR WITH PEERS AT HER SIDE. CALM AND COOPERATIVE WITH CARE AND ASSESSMENT. NO SIGNS OF AGGRESSION. REDIRECT AND REORIENT NEEDED. CONTINUES TO SIT CALMLY IN DAYROOM. CONTINUE PLAN OF CARE.
[2020-05-26 08:41] VITALS: BP 131/91
--- NOTE | 2020-05-26 09:47 | NUR ---
The patient is awake and she remains delusional. She ambulates independently. She vomitted some of her meds out this am. She is calm, but she still believes her spouse is trying to poison her. She is bizarre in behavior. She wants us to crush her meds in applesauce. Provide prescribed meds. The patient is compliant with meds. Continue POC.
[2020-05-26 10:38] VITALS: Wt 58.5 kg
[2020-05-26 20:10] VITALS: BP 138/77
--- NOTE | 2020-05-26 22:44 | NUR ---
RECEIVED IN DAYROOM. SITTING IN A CHAIR WITH PEERS AT HER SIDE. CALM AND COOPERATIVE WITH CARE AND ASSESSMENT. NO DELUSIONAL STATEMENTS VOICED THIS PM. ENCOURAGE TO EXPRESS NEEDS. REDIRECT AND REORIENT NEEDED. RESTING IN BED WITH EYES CLOSED AT THIS TIME. CONTINUE PLAN OF CARE.
[2020-05-27 11:40] VITALS: BP 164/78
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
[2020-05-27 20:53] VITALS: BP 142/70
--- NOTE | 2020-05-27 23:13 | NUR ---
RECEIVED IN DAYROOM. SITTING IN A CHAIR WITH PEERS AT HER SIDE. CALM AND COOPERATIVE WITH CARE AND ASSESSMENT. NO SIGNS OF AGGRESSION. REDIRECT AND REORIENT NEEDED. RESTING IN BED WITH EYES CLOSED AT THIS TIME. CONTINUE PLAN OF CARE.
--- NOTE | 2020-05-27 23:16 | NUR ---
RECEIVED IN DAYROOM. SITTING IN A CHAIR WITH PEERS AT HER SIDE. CALM AND COOPERATIVE WITH CARE AND ASSESSMENT. NO DELUSIONAL STATEMENTS VOICED THIS PM. REDIRECT AND REORIENT NEEDED. RESTING IN BED WITH EYES CLOSED AT THIS TIME. CONTINUE PLAN OF CARE.
[2020-05-28 09:19] VITALS: BP 146/94
--- NOTE | 2020-05-28 13:20 | NUR ---
The patient is asking questions about being discharged and she wants to know about her appointments. Spoke to her about it and let her know the discharge is not in the works just yet. She then asked Dr. Gordon and he told her we will take care of it when she leaves. She said "Ok, good" The patient reminded this nurse to crush her meds this am. Provide prescribed meds. The patient is compliant with meds. The patient has not mentioned any bizarre statements about her trying to poison her. Continue POC.
--- NOTE | 2020-05-28 14:44 | NUR ---
Nutrition Follow-up: Diet: Regular PO intake: ~62% average x last 9 meals. Noted PO intake is varied 0-100% Last BM: 05/27/20 (per MD notes). Wt: 124# (05/26/20); Admit WT: 122# (05/23/20) Meds noted: eufemia bal. No new labs. Recommend continue current diet. Will add Ensure TID. RD following.
[2020-05-28 20:03] VITALS: BP 97/66
--- NOTE | 2020-05-29 03:50 | NUR ---
B.) PT IS ALERT AND ORIENTED X4. SHE IS ABLE TO AMBULATE ON HER OWN. SHE IS CALM AND COOPERATIVE. SHE C/O OF FATIGUE. I.) PROVIDED PM MEDICATIONS PRESCRIBED. REDIRECT NEEDED R.) COMPLIANT WITH ALL MEDICATIONS. EASY TO REDIRECT. P.) WILL CONTINUE TO MONITOR.
[2020-05-29 09:36] VITALS: BP 109/61
--- NOTE | 2020-05-29 13:15 | NUR ---
The patient is awake and alert, but she is sleepy this am. She asked "Will I get to go home in the next couple of weeks?" Explained to her that yes she will. She said "I just feel sleepy today." She has not mentioned any delusions today. She is somatic and acts depressed. Her affect is blunted. Provide prescribed meds. The patient is compliant with meds. Monitor her behavior. Continue POC.
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
[2020-05-29 20:19] VITALS: BP 125/74
--- NOTE | 2020-05-30 01:00 | NUR ---
B.) PT IS ALERT AND ORIENTED TO SELF AND SITUATION. SHE IS CALM AND COOPERATIVE WITH STAFF. SHE IS ABLE TO AMBULATE WITHOUT ASSIST. SHE IS ABLE TO VOICE HER NEEDS AND WANTS. I.) PROVIDED PM MEDICATIONS PRESCRIBED. REDIRECT NEEDED. R.) COMPLIANT WITH ALL MEDICATIONS. EASY TO REDIRECT. P.) WILL CONTINUE TO MONITOR.
--- NOTE | 2020-05-30 11:52 | NUR ---
The patient is awake and alert and she says she feels better today. She admits that she still believes her has a lot of issues, she started going on about when they first got . She said "I was just waiting for him to mature." She says she still believes she is trying to harm her. She still has skin issues. Provide prescribed meds. The patient is compliant with meds. Continue POC.
[2020-05-30 14:10] VITALS: BP 104/64
[2020-05-30 20:08] VITALS: BP 127/69
--- NOTE | 2020-05-30 23:06 | NUR ---
RECEIVED PATIENT IN DAYROOM, SHE IS FLAT, COMPLIANT WITH MEDS, CAN MAKE NEEDS KNOWN. WILL FOLLOW POC
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
[2020-05-31 09:54] VITALS: BP 130/75
[2020-05-31 20:00] VITALS: BP 115/67
--- NOTE | 2020-05-31 21:41 | NUR ---
RECEIVED IN DAYROOM. SITTING IN A CHAIR WITH PEERS AT HER SIDE. CALM AND COOPERATIVE WITH CARE AND ASSESSMENT. NO DELUSIONAL STATEMENTS VOICED AT THIS TIME. REDIRECT AND REORIET NEEDED. CONTINUES TO SIT CALMLY IN DAYROOM. CONTINUE PLAN OF CARE.
[2020-06-01 09:18] VITALS: BP 107/63
--- NOTE | 2020-06-01 09:33 | NUR ---
The patient is awake and alert, she is pleasant. She is really telling her life story to one of the male patients and he is listening intently. She has mentioned how her is really mean to her and he tries to posion her. Provide crushed meds. The patient is compliant with meds. She asked this nurse if Dr. Jackson can help her set up marriage counseling. Let her know he will not be here today. He may be here Tuesday. Continue POC.
--- NOTE | 2020-06-01 19:52 | NUR ---
RECEIVEDIN DAYROOM. SITTING IN A CHAIR WITH PEERS AT HER SIDE. CALMA ND COOPERATIVE WITH CARE AND ASSESSMENT. NO DELUSIONAL STATEMENTS VOICED AT THIS TIME. REDIRECT AND REORIENT NEEDED. CONTINUES TO SIT CALMLY IN DAYROOM. CONTINUES PLAN OF CARE.
[2020-06-01 20:06] VITALS: BP 110/66
--- NOTE | 2020-06-02 17:30 | NUR ---
RECEIVED IN HALLWAY OUTSIDE OF NURSES STATION. CALM AND COOPERATIVE WITH CARE AND ASSESSMENT. BECAME ANGRY AFTER SPEAKING TO THE PSYCHIATRIST BECAUSE SHE CANT GO HOME. REDIRECT AND REORIENT NEEDED. EATING AT THIS TIME. CONTINUE PLAN OF CARE.
[2020-06-02 19:51] VITALS: BP 168/86
--- NOTE | 2020-06-02 20:54 | NUR ---
RECEIVED IN DAYROOM. SITTING IN A CHAIR WITH PEERS AT HER SIDE. CALM AND COOPERATIVE WITH CARE AND ASSESSMENT. NO DELUSIONAL STATEMENTS VOICED AT THIS TIME. REDIRECT AND REOREINT NEEDED. CONTINUES TO SIT CALMLY IN DAYROOM. CONTINUE PLAN OF CARE.
[2020-06-03 10:00] VITALS: BP 104/76
--- NOTE | 2020-06-03 12:00 | NUR ---
RECEIVED IN HALLWAY OUTSIDE OF NURSES STATION. CALM AND COOPERATIVE WITH CARE AND ASSESSMENT. FIXATED ON BEING TOLD THAT SHE WOULD GO TO [facility] BY YESTERDAY. REDIRECT AND REORIENT NEEDED. EATING AT THIS TIME. CONTINUE PLAN OF CARE.
--- NOTE | 2020-06-03 15:08 | PN ---
PATIENT:NAYELI HERRERA MEDICAL RECORD: [id number] LOCATION:[facility] ADMISSION DATE: 05/23/20 PROGRESS NOTE DATE OF SERVICE: 06/02/2020 SUBJECTIVE: The patient's case was discussed with staff. She has no new complaint. OBJECTIVE: The patient is disorganized. She is insisting that her is trying to poison her. ASSESSMENT: Schizoaffective disorder. PLAN: Current medicines have been reviewed. At this point, I believe long-term placement is appropriate and her is trying to make those arrangements. TRANSINT:[id number] Voice Confirmation ID: [id number] DOCUMENT ID: [id number] CAMILA HELM MD at 1508 CC: [id number] DICTATION DATE: 06/02/20 1531 LEAD ATHLETE: 06/02/20 2340 ADM IN [facility] [address] [place] [address]
[2020-06-03 20:11] VITALS: BP 107/68
--- NOTE | 2020-06-03 21:02 | NUR ---
RECEIVED IN DAYROOM. SITTING IN A CHAIR WITH EYES CLOSED. RESPONDS TO VOICE. CALM AND COOPERATIVE WITH CARE AND ASSESSMENT. NO DELUSIONAL STATEMENTS VOICED AT THIS TIME. REDIRECT AND REOREINT NEEDED. CONTINUES TO SIT CALMLY IN DAYROOM. CONTINUE PLAN OF CARE.
[2020-06-04 10:36] VITALS: BP 116/72
--- NOTE | 2020-06-04 13:37 | NUR ---
The patient is awake and alert, she is playing her guitar and she is entertaining herself and others. She is calm today, she is needy at times. She ambulates independently. She believes her is trying to harm her. She denies SI, HI, or depression. Provide prescribed meds. The patient is compliant with meds. Continue POC.
--- NOTE | 2020-06-04 15:09 | NUR ---
Nutrition Follow-up: Diet: Regular + Ensure TID PO intake: ~86% average x last 9 meals Last BM: 06/02/20 (per MD note). WT: 127.6# (06/01/20); Admit Wt: 122# (05/23/20) Meds noted: valeriano cash senokot. No new labs. Recommend continue current diet. RD following.
--- NOTE | 2020-06-04 16:23 | PN ---
PATIENT:NAYELI HERRERA MEDICAL RECORD: [id number] LOCATION:[facility] ADMISSION DATE: 05/23/20 PROGRESS NOTE DATE OF SERVICE: 06/03/2020 SUBJECTIVE: The patient's case was discussed with staff. She has no new complaint. OBJECTIVE: The patient is delusional and continues to insist that her is trying to poison her. She refuses to accept responsibility for not following through with her treatment plan when she was discharged previously indicating that it is actually my fault because I did not make proper arrangements for the followup. The patient has been seen on 2 occasions and observed. She clearly has evidence of a dementing illness, although the primary diagnosis that is bringing her back to the hospital is her schizoaffective disorder. I am going to add dementia to her diagnoses and I am going to start her on Nam[place]. TRANSINT:[id number] Voice Confirmation ID: [id number] DOCUMENT ID: [id number] CAMILA HELM MD at 1623 CC: [id number] DICTATION DATE: 06/03/20 1557 LEATHER ETCHER: 06/03/20 2159 ADM IN [facility] [address] [place] [address]
[2020-06-04 20:00] VITALS: BP 128/74
--- NOTE | 2020-06-04 20:59 | NUR ---
RECEIVED IN DAYROOM. SOCIALIZING WITH OTHER PATIENTS. CALM AND COOPERATIVE WITH CARE AND ASSESSMENT. NO DELUSIONAL STATEMENTS MADE. REDIRECT AND REORIENT NEEDED. SITTING IN GROUP AT THIS TIME. CONTINUE PLAN OF CARE.
[2020-06-05 10:11] VITALS: BP 114/84
--- NOTE | 2020-06-05 16:51 | PN ---
PATIENT:NAYELI HERRERA MEDICAL RECORD: [id number] LOCATION:[facility] ADMISSION DATE: 05/23/20 PROGRESS NOTE DATE OF SERVICE: 06/04/2020 SUBJECTIVE: The patient's case was discussed with staff. She has no new complaint. OBJECTIVE: The patient did receive a Haldol Decanoate injection. It has not had an opportunity to be effective. She still has delusions about her trying to poison her. ASSESSMENT: 1. Schizoaffective disorder. 2. Dementia. PLAN: Current medicines have been reviewed and will be maintained. Long-term prognosis is guarded. TRANSINT:[id number] Voice Confirmation ID: [id number] DOCUMENT ID: [id number] CAMILA HELM MD at 1651 CC: [id number] DICTATION DATE: 06/04/20 171 BANQUET STEWARDESS: 06/04/202027 ADM IN [facility] [address] [place] [address]
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
[2020-06-05 19:36] VITALS: BP 124/77
--- NOTE | 2020-06-06 02:31 | NUR ---
B) Patient is alert and oriented to person and place, bizarre behavior at times, attention seeking toward staff, I) Administered scheduled medications as ordered, redirected as needed, R) Mediation compliant, sleeping now quietly in her bed, P) Continue plan of care.
[2020-06-06 10:11] VITALS: BP 106/72
--- NOTE | 2020-06-06 11:58 | NUR ---
The patient is awake and alert, she is pleasant and calm, she has not made any remarks about her trying to harm her. She is somatic as each day she c/o some kind of sickness. She is interacting in groups and activities. Provide prescribed meds. The patient is compliant with meds and unit milieu. Continue POC.
--- NOTE | 2020-06-06 13:01 | PN ---
PATIENT:NAYELI HERRERA MEDICAL RECORD: [id number] LOCATION:[facility] ADMISSION DATE: 05/23/20 PROGRESS NOTE DATE OF SERVICE: 06/05/2020 SUBJECTIVE: The patient's case was discussed with staff. She has no new complaint. OBJECTIVE: The patient denies intent to harm herself or others. She is tolerating her medicines well. She has poor insight about her situation. ASSESSMENT: 1. Schizoaffective disorder. 2. Dementia. PLAN: The patient's medicines have been reviewed. She currently has received a Haldol Decanoate shot 2 days ago. I do not think it has had much of an opportunity to become effective. She also is taking Depakote for mood stabilization and the Depakote level from 3 days ago was clearly therapeutic. She had a Depakote level on admission that was not therapeutic and indicated noncompliance. At this point, I am just going to watch her behaviors. TRANSINT:[id number] Voice Confirmation ID: [id number] DOCUMENT ID: [id number] CAMILA HELM MD at 1301 CC: [id number] DICTATION DATE: 06/05/201825 MARKET GARDENER: 06/05/202115 ADM IN [id number] [place] [address]
[2020-06-06 20:00] VITALS: BP 101/57
--- NOTE | 2020-06-06 21:40 | NUR ---
B.) PT IS ALERT AND ORIENTED TO SELF ONLY. SHE HAS POOR INSIGHT INTO HER SITUATION. SHE IS NEEDY AT TIMES. SHE IS ABLE TO AMBULATE ON HER OWN AND MAKE HER NEEDS KNOWN. I.) PROVIDED PM MEDICATIONS PRESCRIBED. REDIRECT NEEDED. R.) COMPLIANT WITH ALL MEDICATIONS. EASY TO REDIRECT. P.) WILL CONTINUE TO MONITOR.
[2020-06-07 09:51] VITALS: BP 125/82
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
--- NOTE | 2020-06-07 11:02 | NUR ---
The patient c/o h/a. She rates the pain at 5/10. Tylenol 650 mg po given. Monitor results.
--- NOTE | 2020-06-07 11:45 | NUR ---
The patient is resting easily in a gerichair. No c/o h/a at this time.
[2020-06-07 20:00] VITALS: BP 112/34; BP 120/67
--- NOTE | 2020-06-07 22:43 | NUR ---
B) Patient is alert and oriented to person and place, needy and attention seeking at times, I) Administered scheduled medications as ordered, monitored for safetyand for behaviors, R) Medication compliant, sleeping quietly in her room now. P) Continue plan of care.
[2020-06-08 08:44] VITALS: BP 133/92
--- NOTE | 2020-06-08 10:56 | NUR ---
The patient has two gowns on today. She is getting anxious and working herself up because staff asked her to put some clothes on. She said "All I have is shorts and I haven't shaved my legs." She said she doesn't want to wear any of the unit clothes, she would wear a pair of scrubs. Staff said "well, we will try to find some scrubs, but let's worry about that later." Provide prescribed meds. The patient is compliant with meds, but she insists they be crushed. She told this nurse when she was explaining what she liked to wear. She said "I worked hard, you have it made, I'm pretty simple." Continue POC.
--- NOTE | 2020-06-08 12:49 | NUR ---
PATIENT C/O NECK PAIN AT LEVEL #5/10. TYLENOL 650 MG PO GIVEN. MONITOR FOR RESULTS.
[2020-06-08 19:19] VITALS: BP 140/66
--- NOTE | 2020-06-08 20:12 | NUR ---
RECEIVED IN DAYROOM. SITTING IN A CHAIR WITH PEERS AT HER SIDE. SOCIAL AT TIMES. CALM AND COOPERATIVE WITH CARE AND ASSESSMENT. NO DELUSIONAL STATEMENTS VOICED. REDIRECT AND REORIENT NEEDED. CONTINUES TO SIT CALMLY IN DAYROOM. CONTINUE PLAN OF CARE.
[2020-06-09 08:46] VITALS: BP 112/80
--- NOTE | 2020-06-09 12:00 | NUR ---
RECEIVED IN HALLWAY OUTSIDE OF NURSES STATION. CALM AND COOPERATIVE WITH CARE AND ASSESSMENT. NO BEHAVIORS TODAY. REDIRECT AND REORIENT NEEDED. EATING AT THIS TIME. CONTINUE PLAN OF CARE.
[2020-06-09] MEDS ORDERED: FLUVOXAMINE MAL50 MG PO (18:00)
[2020-06-09] MEDS ORDERED: HALDOL DECAN50 MG/ML IM (18:01)
[2020-06-09] MEDS ORDERED: NAMENDA5 MG PO (18:01)
[2020-06-09] MEDS ORDERED: HALOPERIDOL1 MG PO (18:01)
[2020-06-09] MEDS ORDERED: LINZESS145 MCG PO (18:02)
[2020-06-09] MEDS ORDERED: DULCOLAX5 MG PO (18:02)
[2020-06-09] MEDS ORDERED: LAC-HYDRIN 5226 ML TOPICAL (18:03)
[2020-06-09] MEDS ORDERED: KENALOG 0.1 % 115 GM TOPICAL (18:03)
[2020-06-09] MEDS ORDERED: THERAGRAN M [BK1 TAB PO (18:04)
[2020-06-09] MEDS ORDERED: PROTONIX40 MG PO (18:05)
--- NOTE | 2020-06-09 20:12 | NUR ---
RECEIVED IN DAYROOM. SITTING IN A CHAIR WITH PEERS AT HER SIDE. CALM AND COOPERATIVE WITH CARE AND ASSESSMENT. NO DELSUIONAL STATEMENTS VOICED. REDIRECT AND REOREINT NEEDED. CONTINUES TO SIT CALMLY IN DAYROOM. CONTINUE PLAN OF CARE.
[2020-06-09 20:18] VITALS: BP 108/54
[2020-06-10 09:49] VITALS: BP 121/89
--- NOTE | 2020-06-10 12:00 | NUR ---
RECEIVED IN HALLWAY OUTSIDE OF NURSES STATION. CALM AND COOPERATIVE WITH CARE AND ASSESSMENT. NO BEHAVIORS NOTED. REDIRECT AND REORIENT NEEDED. EATING AT THIS TIME. CONTINUE PLAN OF CARE.
--- NOTE | 2020-06-10 14:00 | NUR ---
PATIENT DISCHARGED TO HOME VIA [facility]. PAPERWORK FAXED TO PCP AND [facility]. HARD COPY SENT WITH PATIENT. DISCHARGE PAPERWORK, MEDICATION LIST, AND APPOINTMENTS REVIEWED WITH PATIENT AND SHE VERBALIZES UNDERSTANDING. PERSONAL BELONGINGS SENT WITH PATIENT.
--- NOTE | 2020-06-10 16:37 | PN ---
PATIENT:NAYELI HERRERA MEDICAL RECORD: [id number] LOCATION:[facility] ADMISSION DATE: 05/23/20 PROGRESS NOTE DATE OF SERVICE: 06/09/2020 SUBJECTIVE: The patient's case was discussed with staff. She has no new complaint. OBJECTIVE: The patient has no thoughts of harming herself or others. She has no psychotic symptoms. Her mood is near euthymic. ASSESSMENT: 1. Schizoaffective disorder. 2. Dementia. PLAN: The patient is going to be discharged to home tomorrow. She is going to have follow up with Mental Health and will be monitored by her . TRANSINT:[id number] Voice Confirmation ID: [id number] DOCUMENT ID: [id number] CAMILA HELM MD at 1637 CC: [id number] DICTATION DATE: 06/09/20 175 DEBATE DIRECTOR: 06/09/202126 DIS IN 06/10/20 [id number] [place] [address]
== END 2020-06-10 14:00 | disposition home or self-care (01) | DRG 885 ==
LOC: D.PSYCH 11:51
PROVIDERS: ADMIT Psychiatry & Neurology Psychiatry; ATTEND Psychiatry & Neurology Psychiatry
DX: F25.0 Schizoaffective disorder, bipolar type (principal); F03.91 Unspecified dementia, unspecified severity, with behavioral disturbance; F41.9 Anxiety disorder, unspecified; T60.91XA Toxic effect of unspecified pesticide, accidental (unintentional), initial encounter; T30.4 Corrosion of unspecified body region, unspecified degree; K59.00 Constipation, unspecified; J30.9 Allergic rhinitis, unspecified; K21.9 Gastro-esophageal reflux disease without esophagitis; I10 Essential (primary) hypertension